=== PATIENT | male | born 1955 | race Caucasian/White ===

== ENCOUNTER 2017-08-06 17:32 | Emergency (ER) | payer MEDICAID, OTHER ==
[2017-08-06 18:06] VITALS: BP 180/112
[2017-08-06] MEDS: Mupirocin Oint 22 GM Tube TOP ONE (18:06)
--- NOTE | 2017-08-06 21:12 | EDM.PDOC ---
ED HPI GENERAL MEDICAL PROBLEM - General Chief Complaint: Laceration Stated Complaint: LACERATION TO LT HAND Time Seen by Provider: 08/06/17 17:35 Source of Information: Reports: Patient History Limitations: Reports: No Limitations - History of Present Illness INITIAL COMMENTS - FREE TEXT/NARRATIVE: This is a 62yo M here for a laceration of the ring finger of the left hand. He cut it on some equipment. He has been unable to take off the ring. Onset: Sudden Location: Reports: Upper Extremity, Left Quality: Reports: Ache Severity: Moderate Improves with: Reports: None Worsens with: Reports: Movement left first digit Pain Score (Numeric/FACES): 9 - Related Data Allergies Allergy/AdvReac Type Severity Reaction Status Date / Time No Known Allergies Allergy Verified 08/06/17 17:38 Home Meds: Home Meds Allopurinol [Zyloprim] 100 mg PO DAILY 08/06/17 [History] Levothyroxine 75 mcg PO ACBREAKFAST 08/06/17 [History] Lisinopril [Prinivil] 10 mg PO DAILY 08/06/17 [History] Rosuvastatin Calcium 5 mg PO DAILY 08/06/17 [History] amLODIPine Besylate [Amlodipine Besylate] 5 mg PO DAILY 08/06/17 [History] ED ROS GENERAL - Review of Systems Review Of Systems: ROS reveals no pertinent complaints other than HPI. ED EXAM, SKIN/RASH Exam: See Below Exam Limited By: No Limitations General Appearance: Alert, WD/WN, Mild Distress Extremities: Normal Inspection Neurological: Alert, Oriented, No Motor/Sensory Deficits Skin: Wound/Incision (jagged wound of the left ring finger on the palmar side the full half of the finger below his ring) ED SKIN PROCEDURES - Laceration/Wound Repair Left Anterior Proximal Finger Lac/Wound length In cm: 4.8 Appearance: Subcutaneous Distal NVT: Neuro & Vascular Intact, No Tendon Injury Anesthetic Type: Local Local Anesthesia - Lidocaine (Xylocaine): 1% Plain Local Anesthetic Volume: Other (10) Skin Prep: Chlorhexidine (Hibiciens), Providone-Iodine (Betadine), Saline, Sterile Drape Exploration/Debridement/Repair: Wound Explored, Explored to Base Closed with: Sutures Suture Size: 4-0 # of Sutures: 9 Suture Type: Nylon, Interrupted, Simple Tetanus Status Addressed: Yes Complications: No - Additional/Other Procedure(s) Other (Free Text) Procedure(s): Ring saw used initially to cut through ring and removed with 2 pliers. Course - Vital Signs Last Recorded V/S: Last Vital Signs Temp Pulse 89 08/06/17 18:03 Resp 16 08/06/17 18:03 BP 180/112 H 08/06/17 18:03 Pulse Ox 100 08/06/17 18:03 - Orders/Labs/Meds Orders: Active Orders 24 hr Category Date Time Status Procedure Tray at Bedside [] ASDIRECTED Care 08/06/17 18:03 Active Meds: Medications Discontinued Medications Generic Name Dose Route Start Last Admin Trade Name Nilda PRN Reason Stop Dose Admin Lidocaine HCl 5 ml 08/06/17 18:02 08/06/17 18:06 Xylocaine-Mpf 1% INJECT 08/06/17 18:03 5 ml ONETIME ONE Administration Mupirocin 0 gm 08/06/17 18:02 08/06/17 18:06 Bactroban Oint TOP 08/06/17 18:03 1 applic ONETIME ONE Administration Departure - Departure Time of Disposition: 18:15 Disposition: Home, Self-Care 01 Condition: Good Clinical Impression: Laceration - Discharge Information Instructions: Laceration Care, Adult Referrals: PCP,None [Primary Care Provider] - Forms: ED Department Discharge Additional Instructions: Keep the dressing clean and dry for the next 3 days. Return to the clinic in 7 days to have the sutures removed. If you have any questions or concerns please call the hospital at [phone] or the clinic at [phone]. - My Orders Last 24 Hours: My Active Orders 08/06/17 18:03 Procedure Tray at Bedside [RC] ASDIRECTED - Assessment/Plan Last 24 Hours: My Active Orders 08/06/17 18:03 Procedure Tray at Bedside [RC] ASDIRECTED
== END 2017-08-06 18:07 | disposition home or self-care (01) ==
LOC: LB.ED 17:32
DX: S61.215A Laceration without foreign body of left ring finger without damage to nail, initial encounter (principal); W27.8XXA Contact with other nonpowered hand tool, initial encounter
CPT/HCPCS: 12002; 99282-25

== ENCOUNTER 2024-12-06 08:41 | Day surgery (SDC) | payer MEDICARE ==
[2024-12-06] MEDS ORDERED: Propofol 200 MG/20 ML SDV ONE (11:00)
[2024-12-06 11:16] VITALS: BP 104/71; PULSE 59
== END 2024-12-06 12:15 | disposition home or self-care (01) ==
LOC: LB.SDS 08:41
PROVIDERS: ATTEND Surgery
DX: Z12.11 Encounter for screening for malignant neoplasm of colon (principal); K57.30 Diverticulosis of large intestine without perforation or abscess without bleeding; I10 Essential (primary) hypertension; E78.5 Hyperlipidemia, unspecified; E03.9 Hypothyroidism, unspecified; Z79.890 Hormone replacement therapy; Z79.899 Other long term (current) drug therapy
CPT/HCPCS: G0121; J2704; J7030